=== PATIENT | male | born 1955 | race Caucasian/White ===

== ENCOUNTER 2017-08-10 06:19 | Observation (INO) | payer OTHER ==
[~2017-08-10] VITALS: Ht 180.3 cm; Wt 100.0 kg
[2017-08-10 07:17] LABS: HEMATOCRIT 40.6 % (38.0-50.0); HEMOGLOBIN 14.1 G/DL (12.5-16.6); MCH 31.8 PG (29.0-34.0); MCHC 34.7 G/DL (30.0-36.0); MCV 91.4 FL (86-99); RBC DIS.WIDTH-SD 43.2 % (39-53); RED BLOOD COUNT 4.44 M/uL (4.00-5.50); WHITE BLOOD COUNT 5.8 K/uL (4.1-10.2)
[2017-08-10 07:41] LABS: D-DIMER ELISA < 150.00 ng/mLDDU (<230)
[2017-08-10 07:47] LABS: TROP-I INTERPRETATION NEGATIVE; TROPONIN-I < 0.01 ng/mL (0.0-0.30)
[2017-08-10 07:55] LABS: PLAT.SUFFICIENCY ADEQUATE
[2017-08-10 08:11] LABS: CHLORIDE 98 MEQ/L (99-109); POTASSIUM 4.9 MEQ/L (3.7-5.4); SODIUM 130 MEQ/L (136-147)
[2017-08-10 08:16] LABS: GFR ESTIMATE (CALCULATED) > 59 mL/min/ (58.99-99999); GLUCOSE 96 mg/dL (70-99); UREA NITROGEN (BUN) 7 mg/dL (9-23)
[2017-08-10] MEDS ORDERED: ASPIR-LOW81 MG PO (10:13)
[2017-08-10] MEDS ORDERED: METOPROLOL SUCC50 MG PO (10:13)
[2017-08-10] MEDS ORDERED: PLAVIX75 MG PO (10:13)
[2017-08-10] MEDS ORDERED: LASIX40 MG PO (10:14)
[2017-08-10] MEDS ORDERED: NITROSTAT0.4 MG SL (10:14)
[2017-08-10] MEDS ORDERED: RANITIDINE HCL150 MG PO (10:14)
[2017-08-10] MEDS ORDERED: PANTOPRAZOLE SO40 MG PO (10:15)
[2017-08-10] MEDS ORDERED: MECLIZINE HCL25 MG PO (10:15)
[2017-08-10] MEDS ORDERED: LISINOPRIL20 MG PO (10:15)
[2017-08-10] MEDS ORDERED: ROSUVASTATIN CA10 MG PO (10:16)
[2017-08-10 10:50] LABS: PLATELET COUNT 171 K/uL (156-360)
[2017-08-10 12:27] VITALS: BP 165/78
[2017-08-10 15:35] VITALS: BP 140/66
== END 2017-08-10 15:58 | disposition left against medical advice (07) ==
LOC: EME → EDBD 06:19 → EME 06:19 → EDOF 09:58 → ENRESERV 09:59 → 5WEST 12:16
PROVIDERS: Emergency Medicine
DX: R07.9 Chest pain, unspecified (principal); I25.10 Atherosclerotic heart disease of native coronary artery without angina pectoris; Z95.5 Presence of coronary angioplasty implant and graft; Z95.1 Presence of aortocoronary bypass graft; I10 Essential (primary) hypertension; T46.4X6A Underdosing of angiotensin-converting-enzyme inhibitors, initial encounter; E87.1 Hypo-osmolality and hyponatremia; E78.5 Hyperlipidemia, unspecified; Z79.82 Long term (current) use of aspirin; Z79.02 Long term (current) use of antithrombotics/antiplatelets; Z88.0 Allergy status to penicillin; F17.210 Nicotine dependence, cigarettes, uncomplicated
CPT/HCPCS: 71045; 80048; 84484; 85027; 85379; 93005; G0378; J1650; J2060; J2270